=== PATIENT | female | born 1975 | race Caucasian/White ===

== ENCOUNTER 2016-11-23 14:09 | Inpatient (IN) | payer BC ==
[~2016-11-23] VITALS: Ht 167.6 cm; Wt 110.2 kg
[2016-11-23] VITALS (10 sets, daily range): BP systolic 107–149
[2016-11-23] MEDS ORDERED: ASPIRIN 325 MG TABLET PO ONE (14:15)
[2016-11-23] MEDS ORDERED: IPRATROPIUM BROM 0.5 MG/2.5 ML VIAL.NEB (ATROVENT) IH ONE (14:30)
[2016-11-23] MEDS ORDERED: ALBUTEROL SULFATE 0.083% 2.5 MG/3 ML VIAL.NEB IH ONE (14:30)
[2016-11-23] MEDS ORDERED: IPRATROPIUM BROM 0.5 MG/2.5 ML VIAL.NEB (ATROVENT) INH ONE (14:31)
[2016-11-23] MEDS ORDERED: ALBUTEROL SULFATE 0.083% 2.5 MG/3 ML VIAL.NEB INH ONE (14:32)
[2016-11-23 14:34] LABS: HEMATOCRIT 35.4 % (36-48); HEMOGLOBIN 12.2 g/dL (12.0-16.0); MEAN CORPUSCULAR HEMOGLOBIN 30 pg (27-31); MEAN CORPUSCULAR HGB CONC 35 % (32-36); MEAN CORPUSCULAR VOLUME 86 fL (79.0-98.0); PLATELET COUNT (AUTO) 255 K/uL (130-430); RED BLOOD CELL COUNT(AUTO) 4.09 MIL/uL (4.2-6.2); RED CELL DISTRIBUTION WIDTH 13.5 % (9.0-15.0); WHITE BLOOD COUNT (AUTO) 10.7 K/uL (4.8-10.8)
[2016-11-23] MEDS ORDERED: IOHEXOL 350 mgI/mL, 150 ML INFUS..BTL IV ONE (14:35)
[2016-11-23 14:50] LABS: ATYPICAL LYMPHOCYTES % 0 % (0-0); BAND % (MANUAL) 2 % (0-6); BASOPHILS % (MANUAL) 0 % (0-2); CALCIUM 8.3 mg/dL (8.4-11.0); CREATININE 1.01 mg/dL (0.55-1.30); EOSINOPHILS % (MANUAL) 1 % (0-7); LYMPHOCYTES % (MANUAL) 26 % (20-46); MONOCYTES % (MANUAL) 6 % (0-11); POTASSIUM 3.4 mmol/L (3.5-5.1)
[2016-11-23 14:52] LABS: PROTHROMBIN TIME 10.7 SECS (9.5-12.5)
[2016-11-23 14:54] LABS: ALBUMIN 3.3 g/dL (3.4-4.8); TOTAL BILIRUBIN 0.3 mg/dL (0.0-1.0); TOTAL PROTEIN, SERUM 7.1 g/dL (6.4-8.3)
[2016-11-23] MEDS ORDERED: LEVO112T5 PO (15:08)
[2016-11-23] MEDS ORDERED: QUET200T PO (15:08)
[2016-11-23] MEDS ORDERED: CHOL500037 PO (15:08)
[2016-11-23] MEDS ORDERED: LAMO200T2 PO (15:08)
[2016-11-23] MEDS ORDERED: ESCI20TA PO (15:08)
[2016-11-23] MEDS ORDERED: ENOXAPARIN SODIUM 100 MG/ML SYRINGE SUBCUT ONE (15:15)
[2016-11-23] MEDS ORDERED: POTASSIUM CHLORIDE 10 MEQ TAB.PRT.SR PO ONE (15:45)
[2016-11-23] MEDS ORDERED: ACETAMINOPHEN 325 MG TABLET PO PRN (15:45)
[2016-11-23] MEDS ORDERED: PANTOPRAZOLE SODIUM 40 MG TAB PO ONE (15:45)
[2016-11-23] MEDS ORDERED: IPRATROPIUM/ALBUTEROL SULFATE 3 ML AMPUL.NEB INH ONE (16:45)
[2016-11-23] MEDS ORDERED: *LOVENOX 1MG/KG Q12H/PHARMACY XX ONE (17:15)
[2016-11-23] MEDS ORDERED: COMMUNICATION ORDER XX ONE (18:00)
[2016-11-23 18:11] LABS: BLOOD GAS PH 7.442 (7.350-7.450)
[2016-11-23 18:12] LABS: ABG TOTAL HEMOGLOBIN 12.8 G/dL (12.0-18.0); BLOOD GAS COHb% 0.3 % (0.5-1.5); BLOOD O2Hb% 94.8 % (94.0-97.0)
[2016-11-23 18:13] LABS: BLOOD GAS HHB 4.5 % (0.0-6.0)
[2016-11-23] MEDS: HYDROcodone/ACETAMIN 5-325 MG TAB (NORCO/ VICODIN) PO PRN (18:40)
[2016-11-23] MEDS: ENOXAPARIN SODIUM 120 MG/0.8 ML SYRINGE SUBCUT SCH (21:16)
[2016-11-23] MEDS: QUEtiapine FUMARATE 100 MG TABLET PO SCH (21:16)
[2016-11-23] MEDS: IPRATROPIUM/ALBUTEROL SULFATE 3 ML AMPUL.NEB INH SCH (23:00)
[2016-11-24] VITALS (15 sets, daily range): BP systolic 93–133
[2016-11-24 06:58] LABS: BASOPHILS % (AUTO) 0.3 % (0.0-2.0); EOSINOPHILS # (AUTO) 0.2 K/uL (0.0-0.4); EOSINOPHILS % (AUTO) 1.8 % (0.0-4.0); HEMOGLOBIN 11.3 g/dL (12.0-16.0); LYMPHOCYTES # (AUTO) 3.9 K/uL (1.0-5.5); LYMPHOCYTES % (AUTO) 41.9 % (20.5-51.5); MEAN CORPUSCULAR HEMOGLOBIN 30 pg (27-31); MEAN CORPUSCULAR HGB CONC 34 % (32-36); MEAN CORPUSCULAR VOLUME 89 fL (79.0-98.0); MONOCYTES # (AUTO) 0.5 K/uL (0.0-1.0); MONOCYTES % (AUTO) 5.4 % (1.7-9.3); NEUTROPHILS # (AUTO) 4.6 K/uL (1.8-7.7); NEUTROPHILS % (AUTO) 50.6 % (40.0-70.0); PLATELET COUNT (AUTO) 229 K/uL (130-430); RED BLOOD CELL COUNT(AUTO) 3.71 MIL/uL (4.2-6.2); RED CELL DISTRIBUTION WIDTH 13.6 % (9.0-15.0); WHITE BLOOD COUNT (AUTO) 9.2 K/uL (4.8-10.8)
[2016-11-24] MEDS: IPRATROPIUM/ALBUTEROL SULFATE 3 ML AMPUL.NEB INH SCH ×3 (07:19→23:00)
[2016-11-24 07:23] LABS: CALCIUM 8.2 mg/dL (8.4-11.0); CREATININE 1.03 mg/dL (0.55-1.30); POTASSIUM 3.9 mmol/L (3.5-5.1)
[2016-11-24] MEDS: LEVOTHYROXINE SODIUM 0.025 MG TABLET PO SCH (07:53)
[2016-11-24] MEDS ORDERED: ESCITALOPRAM OXALATE 10 MG TABLET PO SCH (09:00)
[2016-11-24] MEDS: LamoTRIgine 100 MG TABLET PO SCH (09:03)
[2016-11-24] MEDS: ENOXAPARIN SODIUM 120 MG/0.8 ML SYRINGE SUBCUT SCH ×2 (09:04→20:09)
[2016-11-24] MEDS: CITALOPRAM HYDROBROMIDE 20 MG TABLET PO SCH (09:04)
[2016-11-24] MEDS ORDERED: PANTOPRAZOLE SODIUM 40 MG TAB PO ONE (19:15)
[2016-11-24] MEDS: QUEtiapine FUMARATE 100 MG TABLET PO SCH (20:10)
[2016-11-24] MEDS: HYDROcodone/ACETAMIN 5-325 MG TAB (NORCO/ VICODIN) PO PRN (21:45)
[2016-11-25 00:12] VITALS: BP_SYST 119
[2016-11-25 05:00] VITALS: BP_SYST 108; BP_SYST 117
[2016-11-25] MEDS: LEVOTHYROXINE SODIUM 0.025 MG TABLET PO SCH (06:08)
[2016-11-25 07:00] LABS: BASOPHILS # (AUTO) 0.2 K/uL (0.0-0.2); EOSINOPHILS # (AUTO) 0.2 K/uL (0.0-0.4); HEMATOCRIT 33.7 % (36-48); HEMOGLOBIN 11.7 g/dL (12.0-16.0); LYMPHOCYTES # (AUTO) 3.9 K/uL (1.0-5.5); LYMPHOCYTES % (AUTO) 44.6 % (20.5-51.5); MEAN CORPUSCULAR HEMOGLOBIN 31 pg (27-31); MEAN CORPUSCULAR HGB CONC 35 % (32-36); MEAN CORPUSCULAR VOLUME 88 fL (79.0-98.0); MONOCYTES # (AUTO) 0.5 K/uL (0.0-1.0); MONOCYTES % (AUTO) 5.4 % (1.7-9.3); NEUTROPHILS # (AUTO) 3.9 K/uL (1.8-7.7); PLATELET COUNT (AUTO) 263 K/uL (130-430); RED BLOOD CELL COUNT(AUTO) 3.84 MIL/uL (4.2-6.2); RED CELL DISTRIBUTION WIDTH 13.4 % (9.0-15.0); WHITE BLOOD COUNT (AUTO) 8.7 K/uL (4.8-10.8)
[2016-11-25] MEDS: IPRATROPIUM/ALBUTEROL SULFATE 3 ML AMPUL.NEB INH SCH ×2 (07:32→20:02)
[2016-11-25 08:00] VITALS: BP_SYST 131
[2016-11-25] MEDS: LamoTRIgine 100 MG TABLET PO SCH (09:39)
[2016-11-25] MEDS: CITALOPRAM HYDROBROMIDE 20 MG TABLET PO SCH (09:39)
[2016-11-25] MEDS: PANTOPRAZOLE SODIUM 40 MG TAB PO SCH (09:39)
[2016-11-25 12:24] VITALS: BP_SYST 123
[2016-11-25 16:47] VITALS: BP_SYST 126
[2016-11-25] MEDS: RIVAROXABAN 15 MG TABLET PO SCH (17:28)
[2016-11-25 20:00] VITALS: BP_SYST 125
[2016-11-25] MEDS: QUEtiapine FUMARATE 100 MG TABLET PO SCH (21:44)
[2016-11-26 01:11] VITALS: BP_SYST 127
[2016-11-26 04:00] VITALS: BP_SYST 122
[2016-11-26] MEDS: LEVOTHYROXINE SODIUM 0.025 MG TABLET PO SCH (06:15)
[2016-11-26 08:00] VITALS: BP_SYST 133
[2016-11-26] MEDS: RIVAROXABAN 15 MG TABLET PO SCH (08:21)
[2016-11-26] MEDS: PANTOPRAZOLE SODIUM 40 MG TAB PO SCH (08:21)
[2016-11-26] MEDS: LamoTRIgine 100 MG TABLET PO SCH (08:21)
[2016-11-26] MEDS: CITALOPRAM HYDROBROMIDE 20 MG TABLET PO SCH (08:21)
[2016-11-26] MEDS: IPRATROPIUM/ALBUTEROL SULFATE 3 ML AMPUL.NEB INH SCH ×2 (09:35→15:00)
[2016-11-26 12:39] VITALS: BP_SYST 126
[2016-11-26 14:28] LABS: BLOOD GAS PH 7.429 (7.350-7.450)
[2016-11-26 14:29] LABS: BLOOD GAS BASE EXCESS -0.4 mmol/L (-3.0-3.0); BLOOD GAS COHb% 0.3 % (0.5-1.5); BLOOD GAS HHB 4.8 % (0.0-6.0); BLOOD O2Hb% 94.8 % (94.0-97.0)
[2016-11-26 15:20] VITALS: BP_SYST 126
[2016-11-26] MEDS ORDERED: RIVA15TA (15:29)
[2016-11-26] MEDS ORDERED: RIVA20TA PO (15:29)
[2016-11-26 16:32] VITALS: BP_SYST 128
== END 2016-11-26 16:15 | disposition home or self-care (01) | DRG 299 ==
LOC: SED 14:09 → SIC 15:46 → STU 11-24 10:25
PROVIDERS: ADMIT Internal Medicine; ATTEND Internal Medicine
DX: I82.432 Acute embolism and thrombosis of left popliteal vein (principal); I26.99 Other pulmonary embolism without acute cor pulmonale; I82.442 Acute embolism and thrombosis of left tibial vein; G89.29 Other chronic pain; M54.5 Low back pain; E03.9 Hypothyroidism, unspecified; F31.9 Bipolar disorder, unspecified; R07.89 Other chest pain; E87.6 Hypokalemia; E05.00 Thyrotoxicosis with diffuse goiter without thyrotoxic crisis or storm; I27.2 Other secondary pulmonary hypertension; M54.30 Sciatica, unspecified side; E66.9 Obesity, unspecified; Z90.89 Acquired absence of other organs; Z88.8 Allergy status to other drugs, medicaments and biological substances; Z81.8 Family history of other mental and behavioral disorders; Z68.39 Body mass index [BMI] 39.0-39.9, adult; Z92.3 Personal history of irradiation
CPT/HCPCS: 36415; 36600; 71010; 71275; 80048; 80053; 82803-TC; 83880; 84443-TC; 84484; 84703; 85007; 85025; 85027; 85379; 85610-TC; 85730-TC; 87081; 93005; 93306; 93970; 94640; 94760; 96372; 99291; J1650; Q9967